=== PATIENT | male | born 1940 | race Caucasian/White ===

== ENCOUNTER → 2020-10-17 | Outpatient (CLI) | payer MEDICARE ==
--- NOTE | 2020-10-17 17:19 | RAD ---
EXAM: PA and Lateral Views of the Chest DATE: 10/17/2020 10:10 AM INDICATION: Reason: COUGH / Spl. Instructions: / History: COMPARISON: No Prior FINDINGS: The heart is not enlarged. Mediastinal and hilar contours are normal. No focal parenchymal airspace opacity. 11 mm lung nodule right midlung. No pleural effusion or pneumothorax. Mild wedging of several midthoracic levels, age-indeterminate compression fractures. IMPRESSION: Mild wedging of several midthoracic levels, age-indeterminate compression fractures. 11 mm lung nodule right midlung should be further assessed by CT. Electronically signed by: Tommy Mesa MD (10/17/2020 5:17 PM) [id number]
== END ==
LOC: DXRAD 10:03
PROVIDERS: ATTEND Family Medicine
DX: S22.000A Wedge compression fracture of unspecified thoracic vertebra, initial encounter for closed fracture (principal); R91.1 Solitary pulmonary nodule; R05 Cough; X58.XXXA Exposure to other specified factors, initial encounter; Y93.89 Activity, other specified; Y92.89 Other specified places as the place of occurrence of the external cause; Y99.8 Other external cause status
CPT/HCPCS: 71046

== ENCOUNTER → 2020-11-21 | Outpatient (CLI) | payer MEDICARE ==
--- NOTE | 2020-11-21 14:26 | RAD ---
EXAM: Chest CT without intravenous contrast. HISTORY: Pulmonary nodule. TECHNIQUE: Computed tomographic images of the chest were obtained without contrast. Multiplanar refor matting was performed. *One or more of the following individualized dose reduction techniques were utilized for this examina tion: 1. Automated exposure control. 2. Adjustment of the mA and/or kV according to patient size. 3. Use of iterative reconstruction technique. COMPARISON: Chest radiograph dated 10/17/2020. FINDINGS: The heart is normal in size. The aorta is normal in caliber. No pathologically enlarged lym ph node is seen. There is no pneumothorax or pleural effusion. There is severe emphysema. There is ri ght greater than left apical pleural thickening due to scarring. There is bilateral lower lobe atelec tasis and pleural parenchymal scarring. There is a 7 mm nodule abutting the pleura of the posterior l ateral right lower lobe. There is a small cyst within the right hepatic lobe. There are multiple cysts within both kidneys, th e largest of which on the [id number] measures 9.8 cm on the right follow-up is not routinely perfo rmed for simple cysts. There is a splenule adjacent to an otherwise unremarkable spleen. There are degenerative changes throughout the spine. There are multiple mild chronic compression frac tures super endplate Schmorl's nodes throughout the thoracic spine. There is a severe chronic peewee rao fracture of T6. There is lucency along the anterior superior endplate at this level possibly due to a superimposed acute endplate fracture. No significant retropulsion of the cortex is seen. There is suspected bone demineralization. IMPRESSION: 1. 7 mm right lower lobe pulmonary nodule. Follow-up can be performed in 6 months. 2. Severe emphysema with apical and lower lobe pleural parenchymal scarring superimposed on basilar a telectasis. 3. Polycystic kidneys. 4. Severe T6 compression fracture. This is chronic in appearance. There is lucency along the anterior superior endplate at this level which may be due to a superimposed acute endplate fracture. Correlat e for pain in this location. Electronically signed by: Maeve Shearer MD (11/21/2020 2:24 PM) [id number]
== END ==
LOC: CT 13:43
PROVIDERS: ATTEND Family Medicine
DX: R91.1 Solitary pulmonary nodule (principal); Q61.3 Polycystic kidney, unspecified; S22.059A Unspecified fracture of T5-T6 vertebra, initial encounter for closed fracture; X58.XXXA Exposure to other specified factors, initial encounter; Y93.89 Activity, other specified; Y92.89 Other specified places as the place of occurrence of the external cause; Y99.8 Other external cause status
CPT/HCPCS: 71250